=== PATIENT | female | born 1955 | race African-American/Black ===

== ENCOUNTER 2025-09-23 14:07 | Inpatient (IN) | payer MEDICARE, OTHER ==
[~2025-09-23] VITALS: Ht 157.5 cm; Wt 79.2 kg
[2025-09-23] MEDS: HYDROcodone-ACET 5/325MG TAB PO ONE (00:21)
[2025-09-23] MEDS: ATORVASTATIN 20 MG TAB PO SCH (00:26)
[2025-09-23] MEDS: ENOXAPARIN SOD 40 MG/0.4 ML SYRINGE SC SCH (00:26)
[2025-09-23] MEDS: LORATADINE 10 MG TAB PO ONE (00:27)
--- NOTE | 2025-09-23 14:36 | ED.PDOC ---
History of Present Illness HPI Comments A 70 YEAR OLD FEMALE PRESENTS TO THE ED WITH COMPLAINT OF NECK PAIN, HEADACHE, AND HIGH BLOOD PRESSURE. PATIENT STATES SHE HAS BEEN EXPERIENCING NECK PAIN OFF AND ON FOR THE PAST 3 WEEKS. PATIENT NOTES SHE BEGAN TO EXPERIENCE A HEADACHE, DIZZINESS, AND HIGH BLOOD PRESSURE YESTERDAY AND HAS BEEN UNABLE TO CONTROL HER BLOOD PRESSURE DESPITE TAKING HER HCTZ 50 MG. PATIENT NOTES THAT SHE HAS ALSO BEEN EXPERIENCING URINARY FREQUENCY AND URINARY URGENCY. PATIENT DENIES VISION CHANGES, SLURRED SPEECH, ONE-SIDED WEAKNESS, FACIAL DROOP, FEVER, CHILLS, SHORTNESS OF BREATH, CHEST PAIN, ABDOMINAL PAIN, NAUSEA, VOMITING, OR OTHER COMPLAINTS. NO OTHER SYMPTOMS OR MODIFYING FACTORS AT THIS TIME. PATIENT IS ALERT, ORIENTED X 4, AND HAS STEADY GAIT. 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 ENGINEER History Family History Family History: Reviewed,noncontributory to illness Social History Smoker: Non-Smoker Alcohol: Denies ETOH Use Drugs: Denies Drug Use Lives In: Home Constitutional: denies: chills, diaphoresis, fatigue, fever, malaise, sweats, weakness, others EENTM: denies: blurred vision, double vision, ear bleeding, ear discharge, ear drainage, ear pain, ear ringing, eye pain, eye redness, hearing loss, mouth pain, mouth swelling, nasal discharge, nose bleeding, nose congestion, nose pain, photophobia, tearing, throat pain, throat swelling, voice changes, others Respiratory: denies: cough, hemoptysis, orthopnea, SOB at rest, shortness of breath, SOB with excertion, stridor, wheezing, others Cardiovascular: reports: others (HYPERTENSION); denies: chest pain, dizzy spells, diaphoresis, Dyspnea on exertion, edema, irregular heart beat, left arm pain, lightheadedness, palpitations, PND, syncope Gastrointestinal: denies: abdomen distended, abdominal pain, blood streaked bowels, constipated, diarrhea, dysphagia, difficulty swallowing, hematemesis, melena, nausea, poor appetite, poor fluid intake, rectal bleeding, rectal pain, vomiting, others Genitourinary: denies: abnormal vagina bleeding, burning, dyspareunia, dysuria, flank pain, frequency, hematuria, incontinence, pain, , vagina discharge, urgency, others Neurological: reports: dizziness, headache; denies: fainting, left sided numbness, left sided weakness, numbness, paresthesia, pre-existing deficit, right sided numbness, right sided weakness, seizure, speech problems, tingling, tremors, weakness, others Musculoskeletal: reports: muscle pain, neck pain; denies: back pain, gout, joint pain, joint swelling, muscle stiffness, others Integumetry: denies: bruises, change in color, change in hair/nails, dryness, laceration, lesions, lumps, rash, wounds, others Allergic/Immunocompromised: denies: Difficulty Healing, Frequent Infections, Hives, Itching, others Hematologic/Lymphatic: denies: anemia, blood clots, easy bleeding, easy bruising, swollen glands, others Endocrine: denies: excessive hunger, excessive sweating, excessive thirst, excessive urination, flushing, intolerance to cold, intolerance to heat, unexpla ined weight gain, unexplained weight loss, others Psychiatric: denies: anxiety, bipolar disorder, depression, hopeless, panic disorder, schizophrenia, sleepless, suicidal, others All Other Systems: Reviewed and Negative Physical Exam General Appearance: No Apparent Distress, Normal HEENT: Normal ENT Inspection, PERRL/EOMI, Pharynx Normal, TMs Normal Neck: Full Range of Motion, Normal Inspection, Supple, Tender Lateral (TENDERNESS AND MUSCLE SPASM ON POSTERIOR NECK, NO BONY TENDERNESS, SWELLING AND DEFORMITY. ) Respiratory: Chest Non-Tender, Lungs Clear, No Accessory Muscle Use, No Respiratory Distress, Normal Breath Sounds Cardiovascular: No Edema, No JVD, No Murmur, No Gallop, Normal Peripheral Pulses, Regular Rate/Rhythm Breast Exam: Deferred Gastrointestinal: No Organomegaly, Non Tender, No Pulsatile Mass, Normal Bowel Sounds, Soft Genitalia: Deferred Pelvic: Deferred Rectal: Deferred Extremities: No calf tenderness, Normal capillary refill, Normal inspection, Normal range of motion, Non-tender, No pedal edema Musculoskeletal : Apperance: Normal Neurologic: Alert, front office representative II-XII nml as Tested, No Motor Deficits, Normal Affect, Normal Mood, No Sensory Deficits Cerebellar Function: Normal Reflexes: Normal Skin: Dry, Normal Color, Warm Peripheral Pulses: 2+ carotid (R), 2+ carotid (L), 2+ dorsalis pedis (R), 2+ dorsalis pedis (L) Lymphatic: No Adenopathy Was a procedure done? Was a procedure done?: No Differential Dx Considerations may include: UNCONTROLLED HYPERTENSION, HYPERTENSIVE URGENCY, HYPERTENSIVE EMERGENCY, DEHYDRATION, ELECTROLYTE IMBALANCE, UTI, ACUTE SINUSITIS, BRAIN BLEED, BRAIN MASS, CVA, DDD, CERVICAL RADICULOPATHY, TENSION HEADACHE, MIGRAINE HEADACHE X-Ray, Labs, Meds, VS Vital Signs Date Time Temp Pulse Resp B/P (MAP) Pulse Ox O2 Delivery O2 Flow Rate FiO2 09/23/25 16:24 107/59 09/23/25 15:12 232/94 09/23/25 14:12 97.6 70 18 217/112 97 97.6 Lab Test 09/23/25 14:52 09/23/25 14:26 Range/Units White Blood Count 6.2 4.4-10.8 10^3/uL Red Blood Count 5.12 4.0-5.20 10^6/uL Hemoglobin 14.8 12.2-16.2 g/dL Hematocrit 45.1 36.0-46.0 % Mean Corpuscular Volume 88.1 80.0-100.0 fL Mean Corpuscular Hemoglobin 28.9 28.0-32.0 pg Mean Corpuscular Hemoglobin Concent 32.8 32.0-36.0 g/dL Red Cell Distribution Width 13.6 11.8-14.3 % Platelet Count 315 140-450 10^3/uL Mean Platelet Volume 7.0 6.9-10.8 fL Neutrophils (%) (Auto) 48.7 37.0-80.0 % Lymphocytes (%) (Auto) 36.3 10.0-50.0 % Monocytes (%) (Auto) 9.5 0.0-12.0 % Eosinophils (%) (Auto) 5.1 0.0-7.0 % Basophils (%) (Auto) 0.4 0.0-2.0 % Neutrophils # (Auto) 3.0 1.6-8.6 10 ^3/uL Lymphocytes # (Auto) 2.3 0.4-5.4 10 ^3/uL Monocytes # (Auto) 0.6 0-1.3 10 ^3/uL Eosinophils # (Auto) 0.3 0-0.8 10 ^3/uL Basophils # (Auto) 0 0-0.2 10 ^3/uL Nucleated Red Blood Cells 0.1 % Sodium Level 142 136-145 mmol/L Potassium Level 3.6 3.5-5.1 mmol/L Chloride Level 103 98-107 mmol/L Carbon Dioxide Level 28 20-31 mmol/L Anion Gap 11 5-15 Blood Urea Nitrogen 8 L 9-23 mg/dL Creatinine 0.98 0.550-1.02 mg/dL Glomerular Filtration Rate Calc 62 >90 mL/min BUN/Creatinine Ratio 8.2 L 10.0-20.0 Serum Glucose 81 74-106 mg/dL Calcium Level 9.9 8.7-10.4 mg/dL Troponin I High Sensitivity 26 </=34 ng/L Thyroid Stimulating Hormone (TSH) 3.01 0.55-4.78 uIU/mL Urine Color Colorless Yellow Urine Clarity Clear Clear Urine pH 7.0 5.0-9.0 Urine Specific [place] 1.006 1.001-1.035 Urine Protein Negative Negative Urine Ketones Negative Negative Urine Blood Negative Negative /uL Urine Nitrite Negative Negative Urine Bilirubin Negative Negative Urine Urobilinogen Normal Negative mg/dL Urine Leukocyte Esterase Negative Negative /uL Urine RBC None seen 0 - 4 /hpf Urine Microscopic WBC < 1 0-5 /HPF Urine Squamous Epithelial Cells Few <5 /hpf Urine Bacteria None seen None Seen /hpf Urine Glucose Normal Normal mg/dL Current Medications Medications (Trade) Dose Ordered Sig/Niecy Route Start Time Stop Time Status Last Admin Clonidine HCl (Catapres Tablet) 0.2 mg ONCE ONCE PO 09/23/25 14:30 09/23/25 14:31 DC 09/23/25 15:12 CLINICAL HISTORY: HEADACHE WITH ELEVATED BLOOD PRESSURE TECHNIQUE: Helical scanning was performed of the head from the skull base to the vertex. Multiplanar reconstructions were performed. This exam was performed according to our departmental dose optimization program. Up-to-date CT equipment and radiation dose reduction techniques are utilized as appropriate. CTDI 54 DLP 968 COMPARISON: None FINDINGS: There is no evidence for acute intracranial hemorrhage, acute ischemic changes, mass, mass effect, or extra-axial fluid collection. There is no hydrocephalus or midline shift. There is no effacement of the cerebral sulci and basal subarachnoid cisterns. The henning-white matter differentiation is well maintained. The imaged paranasal sinuses are clear. IMPRESSION: NO ACUTE INTRACRANIAL ABNORMALITY SEEN. ATED BY: ELLIE VALADEZ MD DICTATED DATE/TIME: 09/23/251505 SIGNED BY: ELLIE VALDAEZ MD SIGNED DATE/TIME: 09/23/251505 CC: CHEST RADIOGRAPH Indication: HTN Technique: Single frontal view of the chest was obtained Comparison: None FINDINGS: Lines and Tubes: None Lungs: No focal consolidation. Pleura: No effusion. No pneumothorax. Cardiomediastinal contours: Unremarkable Bones: No acute osseous abnormality. IMPRESSION: 1. No acute cardiopulmonary disease. ATED BY: XENIA MENA Jr., DO DICTATED DATE/TIME: 09/23/251518 SIGNED BY: XENIA MENA Jr., DO SIGNED DATE/TIME: 09/23/251518 CC: CLINICAL INDICATION: NECK PAIN TO SHOULDER TECHNIQUE: 3 radiographic views of the cervical spine were obtained. Comparison: None FINDINGS/IMPRESSION: Bony spondylosis and degenerative disc changes are noted from C3 through C6. There is a small calcification off the tip of the spinous process of C7. May represent avulsion fracture off of the tip of the spinous process of C7 or may represent a calcification in the nuchal ligament. This is an avulsion fracture off the spinous process of C7 this is considered a michele-rib builder's fracture and is stable. Calcification in the nuchal ligament there is no indication of affecting cervical stability. There is no prevertebral soft tissue swelling ATED BY: XENIA MENA Jr., DO DICTATED DATE/TIME: 09/23/251516 SIGNED BY: XENIA MENA Jr., DO SIGNED DATE/TIME: 09/23/251516 CC: X-Ray, Labs, Meds, VS Comment EXTERNAL MEDICAL RECORDS REVIEWED: [NONE] INDEPENDENT HISTORIANS: [NONE] SOCIAL DETERMINANTS OF HEALTH: [NONE] LABS ORDERED: CBC, BMP, UA, TROPONIN REVIEWED AND INTERPRETED RESULTS: NORMAL IMAGING ORDERED: XR CHEST, CT BRAIN TREATMENTS ORDERED: CLONIDINE 0.2 MG P.O. NS 500ML BOLUS PROCEDURES PERFORMED: NONE CRITICAL CARE TIME: NONE I HAVE DISCUSSED THE PATIENT WITH THE ATTENDING PHYSICIAN DR. ROMERO AND HE AGREES WITH THE PATIENT'S PLAN OF CARE UPON MY PHYSICAL EXAMINATION, THE PATIENT WAS WELL IN APPEARANCE, AND HAD NO SIGNS OF RESPIRATORY DISTRESS AT THIS TIME. DUE TO THE PATIENT'S BLOOD PRESSURE REMAINING ELEVATED DESPITE TREATMENT AND DESPITE HER TAKING HER ROUTINE BLOOD PRESSURE MEDICATION, I HAVE DETERMINED THAT THE PATIENT NEEDS TO BE ADMITTED FOR FURTHER TREATMENT AND EVALUATION. THE ON-CALL HOSPITALIST WILL BE CONTACTED FOR ADMISSION OF THIS PATIENT. Images Reviewed?: Images reviewed and evaluated by me Time of 1ST Reevaluation: 17:20 Reevaluation 1ST: Unchanged Patient Education/Counseling: Diagnosis, Treatment Family Education/Counseling: Diagnosis, Treatment SEPSIS Sepsis Screen Date sepsis recognized/suspect: Sep 23, 2025 Time Sepsis recognized/suspect: 1414 Recent Procedure: No On Antibiotic Therapy: No Respiratory Rate >20: No Heart Rate >90: No Temp<36 C (96.8 F) or >38.3 C: No SBP <90 or MAP <65 mmHG: No New Acute Mental Status Change: No Is the patient on CPAP, BIPAP,: No Physician Orders Head Without Contrast (09/23/25 14:25) Chest Xray 1 View (09/23/25 14:25) Cervical Spine 3v (09/23/25 14:25) Electrocardigram (09/23/25 14:25) Heplock Iv (09/23/25 ) Sodium Chloride 0.9% (09/23/25 16:30) Sodium Chloride 0.9% (09/23/25 16:30) Vital Signs Date Time Temp Pulse Resp B/P (MAP) Pulse Ox O2 Delivery O2 Flow Rate FiO2 09/23/25 16:24 107/59 09/23/25 15:12 232/94 09/23/25 14:12 97.6 70 18 217/112 97 97.6 Laboratory Tests Test 09/23/25 14:52 White Blood Count 6.2 10^3/uL (4.4-10.8) Medications Medications Dose Ordered Sig/Niecy Route Start Time Stop Time Status Last Admin Dose Admin Clonidine HCl 0.2 mg ONCE ONCE PO 09/23/25 14:30 09/23/25 14:31 DC 09/23/25 15:12 Departure 1 Departure Time of Disposition: 17:21 Impression: Primary Impression: Accelerated hypertension Additional Impressions: Acute headache Qualified Codes: R51.9 - Headache, unspecified DDD (degenerative disc disease), cervical Disposition: ADMITTED INPATIENT Condition: Serious Critical Care Note Critical Care Time?: No Stability Stability form required: Yes Unstable for transfer: Requires medication, ED Physician Assesment, Possible rapid decline I personally scribed for JOCELINE ALFONSO ([email or web address]) on 09/23/25 at 14:36. Electronically submitted by Igor Peck ([email or web address]). I personally scribed for JOCELINE ALFONSO ([email or web address]) on 09/23/25 at 16:21. Electronically submitted by Igor Peck ([email or web address]). JOCELINE ALFONSO Sep 23, 2025 14:36
--- NOTE | 2025-09-23 15:08 | DVH ---
CLINICAL HISTORY: HEADACHE WITH ELEVATED BLOOD PRESSURE TECHNIQUE: Helical scanning was performed of the head from the skull base to the vertex. Multiplanar reconstructions were performed. This exam was performed according to our departmental dose optimizat ion program. Up-to-date CT equipment and radiation dose reduction techniques are utilized as appropri ate. CTDI 54 DLP 968 COMPARISON: None FINDINGS: There is no evidence for acute intracranial hemorrhage, acute ischemic changes, mass, mass effect, or extra-axial fluid collection. There is no hydrocephalus or midline shift. There is no effacement of the cerebral sulci and basal subarachnoid cisterns. The henning-white matter differentiation is well stewart ntained. The imaged paranasal sinuses are clear. IMPRESSION: NO ACUTE INTRACRANIAL ABNORMALITY SEEN.
--- NOTE | 2025-09-23 15:20 | DVH ---
CLINICAL INDICATION: NECK PAIN TO SHOULDER TECHNIQUE: 3 radiographic views of the cervical spine were obtained. Comparison: None FINDINGS/IMPRESSION: Bony spondylosis and degenerative disc changes are noted from C3 through C6. There is a small calcification off the tip of the spinous process of C7. May represent avulsion fract ure off of the tip of the spinous process of C7 or may represent a calcification in the nuchal ligame nt. This is an avulsion fracture off the spinous process of C7 this is considered a michele-engraver automatic's fract ure and is stable. Calcification in the nuchal ligament there is no indication of affecting cervical stability. There is no prevertebral soft tissue swelling
--- NOTE | 2025-09-23 15:21 | DVH ---
CHEST RADIOGRAPH Indication: HTN Technique: Single frontal view of the chest was obtained Comparison: None FINDINGS: Lines and Tubes: None Lungs: No focal consolidation. Pleura: No effusion. No pneumothorax. Cardiomediastinal contours: Unremarkable Bones: No acute osseous abnormality. IMPRESSION: 1. No acute cardiopulmonary disease.
[2025-09-23 15:23] LABS: Hematocrit 45.1 % (36.0-46.0); Hemoglobin 14.8 g/dL (12.2-16.2); Mean Corpuscular Hemoglobin 28.9 pg (28.0-32.0); Mean Corpuscular Volume 88.1 fL (80.0-100.0); Nucleated Red Blood Cells % 0.1 %
[2025-09-23 15:25] LABS: Chloride 103 mmol/L (98-107); Potassium 3.6 mmol/L (3.5-5.1); Sodium 142 mmol/L (136-145)
[2025-09-23 15:26] LABS: Anion Gap 11 (5-15); Calcium 9.9 mg/dL (8.7-10.4); Carbon Dioxide 28 mmol/L (20-31)
[2025-09-23 15:31] LABS: BUN/Creatinine Ratio 8.2 (10.0-20.0); Glucose 81 mg/dL (74-106)
[2025-09-23 15:32] LABS: Blood Urea Nitrogen 8 mg/dL (9-23)
[2025-09-23 15:56] LABS: Urine Protein, UAD Negative (Negative)
[2025-09-23] MEDS ORDERED: SODIUM CHLORIDE 0.9% 1,000 ML IV ONE (16:30)
[2025-09-23] MEDS: SODIUM CHLORIDE 0.9% 500 ML IV ONE (17:31)
[2025-09-23] MEDS ORDERED: LIDOCAINE 5% TOPICAL PATCH TOP ONE (21:30)
[2025-09-23] MEDS ORDERED: ONDANSETRON HCL 4 MG/2 ML VIAL IV PRN (21:30)
[2025-09-23] MEDS ORDERED: ACETAMINOPHEN 325 MG TAB PO PRN (21:30)
--- NOTE | 2025-09-23 22:06 | DVHHPRES ---
History of Present Illness Resident Creating Document: JAQUI SOLIMAN RESIDENT History of Present Illness This is a 70-year-old female With a past medical history of hypertension and single kidney since ( right kidney present) who came to the emergency department with complaints of neck pain, pain between her shoulder blades, right-sided face pain and headache for the past 1 day. Patient reports that she checked her blood pressure which was high about 154/80 mmHg which prompted her to visit the emergency room as the pain in her face, head, neck, shoulder blades was increasing. Patient describes the pain as a dull ache, rates it as 9/ 10 in intensity, localized to the aforementioned we regions, increased with head movement and associated with ear fullness and ache as well as mucus in her throat since yesterday which she is unable to cough out. On inquiry patient reports that 4 days ago she felt dizzy in the afternoon when she was walking and had to sit down. She felt that she was rotating and after 10 minutes it went away. Patient had checked her blood pressure in the morning that day which was normal. patient denies any dizziness at the moment, no nausea, vomiting, chest pain, blurring of vision, numbness,confusion, or any flu-like symptoms. Patient also reports that she had increased urinary frequency yesterday which was new to her but denies any dysuria, burning micturition or any other urinary symptoms. She does report she has shortness of breath sometimes when she walks up the stairs which is recent finding but was not short of breath yesterday or today. On admission patient had hypertensive urgency with blood pressure of 217/112 mmHg. We are admitting her for further workup and management. Past medical history: As stated above Past surgical history: Cholecystectomy, tubal ligation family history: Mother passed due to colon cancer, father passed due to lung cancer Social history: Patient denies smoking, did take marijuana as a teenager, drinks wine socially PCP: in [facility] that she can not remember the name of ; Dr. Luci vyas is her radiologic electronic specialist for her single kidney Allergies: seasonal, no known medical allergy code status: Full code Review of Systems Constitutional: Yes: Other (headache on right temporal region and right side of the face); No: Fever, Chills, Sweats, Weakness, Malaise Eyes: No: Pain, Vision change, Conjunctivae inflammation, Eyelid inflammation, Other, Redness ENT: Ear pain, Throat swelling; No: Ear discharge, Nose pain, Nose discharge, Nose congestion, Mouth pain, Mouth swelling, Throat pain, Other Respiratory: No: Cough, Dry, Shortness of breath, SOB with excertion, Wheezing, Hemoptysis, Pleuritic Pain, Sputum, Wheezing, Other Cardiovascular: No: Chest Pain, Palpitations, Orthopnea, Paroxysmal Noc. Dyspnea, Edema, Lt Headedness, Other Gastrointestinal: No: Nausea, Vomiting, Abdominal Pain, Diarrhea, Constipation, Melena, Hematochezia, Other Genitourinary: No Dysuria, No Frequency, No Incontinence, No Hematuria, No Retention, No Other Musculoskeletal: neck pain, shoulder pain; No: other, arm pain, back pain, hand pain, leg pain, foot pain Skin: No: Rash, Lesions, Jaundice, Bruising, Other Neurological: No: Weakness, Numbness, Incoordination, Change in speech, Confusion, Seizures, Other Allergies: Coded Allergies: NO KNOWN ALLERGIES (Unverified , 03/22/14) Medications Current Medications Medications Dose Ordered Sig/Niecy Route Start Time Stop Time Status Last Admin Dose Admin Acetaminophen/ Hydrocodone Bitart 1 tab Q4HP PRN PO 09/23/25 21:30 UNV Ondansetron HCl 4 mg Q4HP PRN IV 09/23/25 21:30 UNV Enoxaparin Sodium 40 mg DAILY SC 09/23/25 21:30 UNV Acetaminophen 650 mg Q4HP PRN PO 09/23/25 21:30 UNV Hydrochlorothiazide 50 mg DAILY PO 09/24/25 10:00 UNV Atorvastatin Calcium 20 mg HS PO 09/23/25 22:00 UNV Losartan Potassium 25 mg DAILY PO 09/24/25 10:00 UNV Loratadine 10 mg DAILY PO 09/24/25 10:00 UNV Lidocaine 1 patch DAILY TOP 09/24/25 10:00 UNV Exam Vital Signs Vital Signs Date Time Temp Pulse Resp B/P (MAP) Pulse Ox O2 Delivery O2 Flow Rate FiO2 09/23/25 19:45 97.6 63 16 130/79 (96) 95 97.6 Exam General Appearance: Alert, Oriented X3, Cooperative, Not in acute distress HEENT: Atraumatic, Mucous membranes moist/pink, tenderness on palpation of the back of the neck and between the shoulder blades Respiratory: Clear to auscultation, Normal air movement, No added sounds Cardiovascular: Regular rate, Normal S1, Normal S2, No murmurs Abdominal: Active bowel sounds, Soft, no distention, no tenderness Extremities: No edema, Normal pulses, No tenderness/swelling Skin: No Significant rash, except past surgical scars Neuro: Normal speech, sensorimotor deficits none Psych/Mental Status: Mental status NL, Mood NL Nurse was there as affiliate marketing specialist during examination Labs/Xrays Labs Test 09/23/25 14:52 09/23/25 14:26 Range/Units White Blood Count 6.2 4.4-10.8 10^3/uL Red Blood Count 5.12 4.0-5.20 10^6/uL Hemoglobin 14.8 12.2-16.2 g/dL Hematocrit 45.1 36.0-46.0 % Mean Corpuscular Volume 88.1 80.0-100.0 fL Mean Corpuscular Hemoglobin 28.9 28.0-32.0 pg Mean Corpuscular Hemoglobin Concent 32.8 32.0-36.0 g/dL Red Cell Distribution Width 13.6 11.8-14.3 % Platelet Count 315 140-450 10^3/uL Mean Platelet Volume 7.0 6.9-10.8 fL Neutrophils (%) (Auto) 48.7 37.0-80.0 % Lymphocytes (%) (Auto) 36.3 10.0-50.0 % Monocytes (%) (Auto) 9.5 0.0-12.0 % Eosinophils (%) (Auto) 5.1 0.0-7.0 % Basophils (%) (Auto) 0.4 0.0-2.0 % Neutrophils # (Auto) 3.0 1.6-8.6 10 ^3/uL Lymphocytes # (Auto) 2.3 0.4-5.4 10 ^3/uL Monocytes # (Auto) 0.6 0-1.3 10 ^3/uL Eosinophils # (Auto) 0.3 0-0.8 10 ^3/uL Basophils # (Auto) 0 0-0.2 10 ^3/uL Nucleated Red Blood Cells 0.1 % Sodium Level 142 136-145 mmol/L Potassium Level 3.6 3.5-5.1 mmol/L Chloride Level 103 98-107 mmol/L Carbon Dioxide Level 28 20-31 mmol/L Anion Gap 11 5-15 Blood Urea Nitrogen 8 L 9-23 mg/dL Creatinine 0.98 0.550-1.02 mg/dL Glomerular Filtration Rate Calc 62 >90 mL/min BUN/Creatinine Ratio 8.2 L 10.0-20.0 Serum Glucose 81 74-106 mg/dL Calcium Level 9.9 8.7-10.4 mg/dL Troponin I High Sensitivity 26 </=34 ng/L Thyroid Stimulating Hormone (TSH) 3.01 0.55-4.78 uIU/mL Urine Color Colorless Yellow Urine Clarity Clear Clear Urine pH 7.0 5.0-9.0 Urine Specific [place] 1.006 1.001-1.035 Urine Protein Negative Negative Urine Ketones Negative Negative Urine Blood Negative Negative /uL Urine Nitrite Negative Negative Urine Bilirubin Negative Negative Urine Urobilinogen Normal Negative mg/dL Urine Leukocyte Esterase Negative Negative /uL Urine RBC None seen 0 - 4 /hpf Urine Microscopic WBC < 1 0-5 /HPF Urine Squamous Epithelial Cells Few <5 /hpf Urine Bacteria None seen None Seen /hpf Urine Glucose Normal Normal mg/dL SEPSIS Sepsis Screen Date sepsis recognized/suspect: Sep 23, 2025 Time Sepsis recognized/suspect: 1414 Recent Procedure: No On Antibiotic Therapy: No Respiratory Rate >20: No Heart Rate >90: No Temp<36 C (96.8 F) or >38.3 C: No SBP <90 or MAP <65 mmHG: No New Acute Mental Status Change: No Is the patient on CPAP, BIPAP,: No Physician Orders Head Without Contrast (09/23/25 14:25) Chest Xray 1 View (09/23/25 14:25) Cervical Spine 3v (09/23/25 14:25) Electrocardigram (09/23/25 14:25) Heplock Iv (09/23/25 ) Admit (09/23/25 21:25) Code Status (09/23/25 21:25) Hydrocodone-Acet 5/325mg Tab ([place] 5/32 (09/23/25 21:30) Ondansetron Hcl (Zofran) (09/23/25 21:30) Complete Blood Count (09/24/25 04:00) Comprehensive Metabolic Panel (09/24/25 04:00) Cardiac Diet-2gna,Lofat,Lochol (09/24/25 Breakfast) Condition: Unstable (09/23/25 21:25) Enoxaparin Sodium (Lovenox) (09/23/25 21:30) Notify Of Changes From Base (09/23/25 21:25) Baclofen Tablet (Liorisal Tablet) (09/23/25 21:30) Acetaminophen Tablet (Tylenol Tablet) (09/23/25 21:30) Hydrochlorothiazide Tablet (Hydrochlorot (09/24/25 10:00) Hepatic Panel (09/23/25 21:25) Atorvastatin (Lipitor) (09/23/25 22:00) Drug Screen (09/23/25 21:25) Losartan Tablet (Cozaar Tablet) (09/24/25 10:00) Echo 2d Mode Cardiac Dop (09/23/25:25) Loratadine Tablet (Claritin Tablet) (09/24/25 10:00) Loratadine Tablet (Claritin Tablet) (09/23/25 21:30) Lidocaine 5% Topical Patch (Lidoderm 5% (09/23/25 21:30) Lidocaine 5% Topical Patch (Lidoderm 5% (09/24/25 10:00) Hydrocodone-Acet 5/325mg Tab ([place] 5/32 (09/23/25 21:30) Vital Signs Date Time Temp Pulse Resp B/P (MAP) Pulse Ox O2 Delivery O2 Flow Rate FiO2 09/23/25 19:45 97.6 63 16 130/79 (96) 95 97.6 09/23/25 16:24 107/59 09/23/25 15:12 232/94 09/23/25 14:12 97.6 70 18 217/112 97 97.6 Laboratory Tests Test 09/23/25 14:52 White Blood Count 6.2 10^3/uL (4.4-10.8) Medications Medications Dose Ordered Sig/Niecy Route Start Time Stop Time Status Last Admin Dose Admin Clonidine HCl 0.2 mg ONCE ONCE PO 09/23/25 14:30 09/23/25 14:31 DC 09/23/25 15:12 0.2 MG Sodium Chloride 500 ml @ 500 mls/hr Q1H ONCE IV 09/23/25 16:30 09/23/25 17:29 DC 09/23/25 17:31 500 MLS/HR Assessment/Plan Assessment/Plan #Hypertensive Urgency -CXR-No acute cardiopulmonary disease. -CT -head without contrast shows no acute intracranial abnormality -clonidine 0.1 mg given once -continue home medication hydrochlorothiazide 50 mg po daily -amlodipine 5 mg p.o. daily -UDS negative -echo -baclofen 10 mg p.o. once -lidocaine 5% patch -Zofran 4 mg IV q.4 PRN -pain control with acetaminophen 650 mg q.4 PRN for headache -[place] 5/325 mg q.4 PRN for neck pain #bony spondylolysis and degenerative disc disease #avulsion fracture of tip of spinous process C7 -CT cervical spine shows: Bony spondylosis and degenerative disc changes are noted from C3 through C6; There is a small calcification off the tip of the spinous process of C7. 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 Neri, patient and nurse. Plan discussed with: Patient My Orders Orders - JAQUI SOLIMAN RESIDENT Procedure Category Date Status Time Admit ADMIT 09/23/25 Transmitted 21:25 Code Status CODE 09/23/25 Transmitted 21:25 Hydrocodone-Acet PHA 09/23/25 Logged 5/325mg Tab ([place] 21:30 Ondansetron Hcl PHA 09/23/25 Logged (Zofran) 21:30 Complete Blood Count LAB 09/24/25 Verified 04:00 Comprehensive LAB 09/24/25 Verified Metabolic Panel 04:00 Cardiac DIET 09/24/25 Transmitted Diet-2gna,Lofat,Lochol Breakfast Condition: Unstable EDWIN 09/23/25 In Process 21:25 Enoxaparin Sodium PHA 09/23/25 Logged (Lovenox) 21:30 Notify Of Changes EDWIN 09/23/25 In Process From Base 21:25 Baclofen Tablet PHA 09/23/25 Logged (Liorisal Tablet) 21:30 Acetaminophen Tablet PHA 09/23/25 Logged (Tylenol Tablet) 21:30 Hydrochlorothiazide PHA 09/24/25 Logged Tablet (Hydrochlorot 10:00 Hepatic Panel LAB 09/23/25 In Process 21:25 Atorvastatin (Lipitor) PHA 09/23/25 Logged 22:00 Drug Screen LAB 09/23/25 Logged 21:25 Losartan Tablet PHA 09/24/25 Logged (Cozaar Tablet) 10:00 Echo 2d Mode Cardiac US 09/23/25 Logged DOP 21:25 Loratadine Tablet PHA 09/24/25 Logged (Claritin Tablet) 10:00 Loratadine Tablet PHA 09/23/25 Logged (Claritin Tablet) 21:30 Lidocaine 5% Topical PHA 09/23/25 Logged Patch (Lidoderm 5% 21:30 Lidocaine 5% Topical PHA 09/24/25 Logged Patch (Lidoderm 5% 10:00 Hydrocodone-Acet PHA 09/23/25 Logged 5/325mg Tab ([place] 21:30 Date of Service: Sep 23, 2025 Billing Provider: NICK NERI MD, SRE RESIDENT Sep 23, 2025 22:06
[2025-09-23 22:15] LABS: Alanine Aminotransferase 29.0 U/L (7-40); Total Protein 8.0 g/dL (5.7-8.2)
[2025-09-23 22:16] LABS: Albumin 4.6 g/dL (3.2-4.8); Bilirubin, Direct 0.2 mg/dL (<0.3); Bilirubin, Total 0.8 mg/dL (0.2-1.0)
[2025-09-23 22:18] LABS: Alkaline Phosphatase 119.0 U/L (46-116)
[2025-09-23 22:48] LABS: Triglycerides 107 mg/dL (< 150)
[2025-09-23 22:50] LABS: HDL Cholesterol 57 mg/dL (40-59)
[2025-09-23 22:51] LABS: Cholesterol 272 mg/dL (< 200)
[2025-09-23 23:41] LABS: Amphetamine Screen, Urine Neg (NEGATIVE); Barbiturate Scree,Urine Neg (NEGATIVE); Benzodiazephine Screen, Urine Neg (NEGATIVE); Cannabinoid Screen, Urine Neg (NEGATIVE); Cocaine Screen, Urine Neg (NEGATIVE); Opiate Scree,Urine Neg (NEGATIVE); Phencyclidine Screen, Urine Neg (NEGATIVE)
[2025-09-24] VITALS (11 sets, daily range): BP systolic 122–179; BP diastolic 55–90; PULSE 56–66; RESP 15–19; TEMP 97.4–97.9; O2SAT 96–100
[2025-09-24] MEDS: BACLOFEN 10 MG TAB PO ONE (00:19)
[2025-09-24] MEDS: ATORVASTATIN 20 MG TAB PO SCH (03:30)
[2025-09-24 08:50] LABS: Hematocrit 42.4 % (36.0-46.0); Hemoglobin 14.2 g/dL (12.2-16.2); Mean Corpuscular Hemoglobin 29.4 pg (28.0-32.0); Mean Corpuscular Volume 87.7 fL (80.0-100.0); Nucleated Red Blood Cells % 0.1 %
[2025-09-24 09:03] LABS: Triglycerides 90 mg/dL (< 150)
[2025-09-24 09:05] LABS: HDL Cholesterol 50 mg/dL (40-59)
[2025-09-24 09:07] LABS: Cholesterol 248 mg/dL (< 200)
[2025-09-24 09:08] LABS: Alanine Aminotransferase 25 U/L (7-40); Albumin 4.2 g/dL (3.2-4.8); Anion Gap 9 (5-15); BUN/Creatinine Ratio 11.3 (10.0-20.0); Blood Urea Nitrogen 11 mg/dL (9-23); Calcium 9.3 mg/dL (8.7-10.4); Carbon Dioxide 28 mmol/L (20-31); Chloride 106 mmol/L (98-107); Glucose 93 mg/dL (74-106); Potassium 3.7 mmol/L (3.5-5.1); Sodium 143 mmol/L (136-145); Total Protein 7.3 g/dL (5.7-8.2)
[2025-09-24 09:09] LABS: Alkaline Phosphatase 116 U/L (46-116); Bilirubin, Total 0.7 mg/dL (0.2-1.0)
[2025-09-24] MEDS ORDERED: LOSARTAN POTASSIUM 25 MG TAB PO SCH (10:00)
[2025-09-24] MEDS: hydroCHLOROthiazide 25 MG TAB PO SCH (13:47)
[2025-09-24] MEDS: LORATADINE 10 MG TAB PO SCH (13:47)
--- NOTE | 2025-09-24 14:19 | DVHPNRES ---
Progress Note Date Seen: Sep 24, 2025 Resident Creating Document: PATEL BERG RESIDENT Has the PT tested + for MRSA If YES, has PT been informed?: No Medical Necessity Reason Pt with a Central, PICC or Fol: No Subjective Review of Systems Mohsen Romero is a 70-year-old female, with a past medical history of hypertension and single functioning kidney (diagnosed in adulthood, right kidney is present). The patient came to the ED with chief complain of 1 day of headache, localized in the right temporal area, 9/10, throbbing like pain, irradiated to right side of the face, ear and neck; associated with dizziness, sore throat, and post nasal drip. The patient reports noticing high blood pressure readings at home. This prompted her visit to the ED. The patient denies fever, chills, nausea, vomit, diarrhea, chest pain, abdominal pain, sick contacts or recent travels. In the ED the BP 217/112 mmHg; the patient was given clonidine 0.2mg. CT scan report showed: Degenerative disc disease C3 through C6. The patient was admitted for further assessment, BP management and pain control. On 09/24/25, the patient was re-evaluated at bedside, VS, labs and chart was reviewed. Labs are wnl, BP: 153/79. The patient reports feeling better, but still has sore throat. COVID-19 and influenza test were ordered. Hydrochlorothiazide 50mg and amlodipine 10mg was started. We will continue following this patient progress. Past medical history: HTN, single functioning kidney (diagnosed in adulthood) Past surgical history: Cholecystectomy, tubal ligation family history: Mother passed due to colon cancer, father passed due to lung cancer Social history: Patient denies smoking, did take marijuana as a teenager, drinks wine socially PCP: in [facility] that she can not remember the name of ; Dr. Luci vyas is her coin machine mechanic for her single kidney Allergies: seasonal, no known medical allergy code status: Full code ROS: Constitutional: Yes: Other (headache on right temporal region and right side of the face); No: Fever, Chills, Sweats, Weakness, Malaise Eyes: No: Pain, Vision change, Conjunctivae inflammation, Eyelid inflammation, Other, Redness ENT: Ear pain, Throat pain and swelling; No: Ear discharge, Nose pain, Nose discharge, Nose congestion, Mouth pain, Mouth swelling, Throat pain, Other Respiratory: No: Cough, Dry, Shortness of breath, SOB with excertion, Wheezing, Hemoptysis, Pleuritic Pain, Sputum, Wheezing, Other Cardiovascular: No: Chest Pain, Palpitations, Orthopnea, Paroxysmal Noc. Dyspnea, Edema, Lt Headedness, Other Gastrointestinal: No: Nausea, Vomiting, Abdominal Pain, Diarrhea, Constipation, Melena, Hematochezia, Other Genitourinary: No Dysuria, No Frequency, No Incontinence, No Hematuria, No Retention, No Other Musculoskeletal: neck pain; No: other, arm pain, back pain, hand pain, leg pain, foot pain Skin: No: Rash, Lesions, Jaundice, Bruising, Other Neurological: No: Weakness, Numbness, Incoordination, Change in speech, Confusion, Seizures, Other Allergies: Unknown allergies. Objective vital signs Vital Sign Date Time Temp Pulse Resp B/P (MAP) Pulse Ox O2 Delivery O2 Flow Rate FiO2 09/24/25 13:47 153/79 09/24/25 13:00 97.5 60 19 99 97.5 09/24/25 00:42 Room Air* 0 21 Total Intake and Output 09/23/25 09/23/25 09/24/25 15:00 23:00 07:00 Intake Total 500 ml 210 ml Balance 500 ml 210 ml medications Current Medications Medications Dose Ordered Sig/Niecy Route Start Time Stop Time Status Last Admin Dose Admin Acetaminophen/ Hydrocodone Bitart 1 tab Q4HP PRN PO 09/23/25 21:30 Ondansetron HCl 4 mg Q4HP PRN IV 09/23/25 21:30 Enoxaparin Sodium 40 mg DAILY@2200 SC 09/23/25 22:30 Acetaminophen 650 mg Q4HP PRN PO 09/23/25 21:30 Hydrochlorothiazide 50 mg DAILY PO 09/24/25 10:00 09/24/25 13:47 50 MG Loratadine 10 mg DAILY PO 09/24/25 10:00 09/24/25 13:47 10 MG Lidocaine 1 patch DAILY@2200 TOP 09/24/25 22:00 Atorvastatin Calcium 40 mg HS PO 09/24/25 03:30 Amlodipine Besylate 10 mg DAILY PO 09/24/25 11:45 09/24/25 13:46 10 MG Examination General Appearance: No acute Distress, Normal HEENT: Right ear: non tender, no active discharge. PERRL/EOMI, Pharynx Normal, TMs Normal Neck: ROM limited due to pain. Tender to deep palpation. Respiratory: Chest Non-Tender, Lungs Clear, No Accessory Muscle Use, No Respiratory Distress, Normal Breath Sounds Cardiovascular: No Edema, No JVD, No Murmur, No Gallop, Normal Peripheral Pulses, Regular Rate/Rhythm Gastrointestinal: No Organomegaly, Non Tender, No Pulsatile Mass, Normal Bowel Sounds, Soft Extremities: No calf tenderness, Normal capillary refill, Normal inspection, Normal range of motion, Non-tender, No pedal edema Musculoskeletal : Tenderness on passive and active ROM. Tenderness on palpation. Neurologic: Alert, student affairs vice president II-XII nml as Tested, No Motor Deficits, Normal Affect, Normal Mood, No Sensory Deficits Cerebellar Function: Normal Reflexes: Normal Skin: Dry, Normal Color, Warm Peripheral Pulses: 2+ carotid (R), 2+ carotid (L), 2+ dorsalis pedis (R), 2+ dorsalis pedis (L) Lymphatic: No Adenopathy laboratory and microbiology Laboratory Tests 09/24/25 08:34 Test 09/24/25 08:34 Range/Units Serum Glucose 93 74-106 mg/dL Problem List/Assessment/Plan Problem List/Assessment/Plan #Hypertensive Urgency #Hypertensive heart disease systolic/diastolic -CXR-No acute cardiopulmonary disease. -CT -head without contrast shows no acute intracranial abnormality -continue home medication hydrochlorothiazide 50 mg po daily -amlodipine 5 mg p.o. daily -UDS negative -echo: report is pending -pain control with acetaminophen 650 mg q.4 PRN for headache -[place] 5/325 mg q.4 PRN for neck pain #Bony spondylolysis and degenerative disc disease #Avulsion fracture of tip of spinous process C7 -CT cervical spine shows: Bony spondylosis and degenerative disc changes are noted from C3 through C6; There is a small calcification off the tip of the spinous process of C7. 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 Discussed plan of care with Dr. Reed. Code status: Full code PCP: Nons Plan discussed with: Patient, the patient agrees with the plan. Plan discussed with: Patient My Orders My Orders Orders - PATEL BERG Procedure Category Date Status Time Covid19 Antigen [place] LAB 09/24/25 Logged Complete Blood Count LAB 09/25/25 Verified 04:00 Basic Metabolic Panel LAB 09/25/25 Verified 04:00 Date of Service: Sep 24, 2025 Billing Provider: LORETO SANTOS MD Common Visit Codes: [id number] INP/OBS CARE(HIGH) PATEL BERG RESIDENT Sep 24, 2025 14:19 LORETO SANTOS MD Sep 24, 2025 22:33
[2025-09-24] MEDS: HYDROcodone-ACET 5/325MG TAB PO PRN (16:25)
--- NOTE | 2025-09-24 18:05 | DVHSR ---
APPROVED REPORT EXAM: Two-dimensional and M-mode echocardiogram with Doppler and color Doppler. Blood Pressure: 158/90 mmHg INDICATION Chest Pain RISK FACTORS Height: 5'2", Weight: 174 DIMENSIONS LVDd3.9 (3.8-5.7cm)LA (2D)3.4 (1.9-4.0cm)Aortic Root2.5 (2.0-3.7cm) LVDs2.5 (2.5-4.0cm)LA (MM) (1.9-4.0cm)Aortic Cusp Exc1.6 (1.5-2.0cm) EF (%) 66.0 (55-70%)Rt. Atrium3.3 (1.9-4.0cm)Asc. Aorta cm IVSd1.0 (0.7-1.1cm)RV (D)2.8 (1.8-2.4cm) PWd0.9 (0.7-1.1cm) Mitral Valve MitralMitral Stenosis E wave0.88m/sMV Mean GR.mmHg A wave0.81m/sMV Peak GR.mmHg E/A ratio1.12D MVAcm2 DECEL [id number] 1/2 Timems Aortic Valve Aortic ValveAortic Stenosis V11.15m/Brigette Mean GR.4mmHg V21.38m/Brigette Peak GR.8mmHg LVOT Diameter1.9 (1.8-2.4cm)Doppler AVA2.36cm2 Pulmonic Valve V20.69m/s Other Information Quality : Technically LimitedRhythm : Technically limited study due to body habitus. Conclusion lvef 60% mild LVH normal rv function left atrium enlarged no severe valve abnormalities noted
[2025-09-24] MEDS ORDERED: hydrALAZINE HCL 20 MG/ML VL IV ONE (18:15)
[2025-09-24] MEDS: LIDOCAINE 5% TOPICAL PATCH TOP SCH (21:15)
[2025-09-25 00:47] VITALS: BP 129/74; PULSE 59; RESP 17; TEMP 98.1; O2SAT 98
[2025-09-25 04:45] VITALS: BP 131/80; PULSE 61; RESP 19; TEMP 97.9; O2SAT 100
[2025-09-25 05:47] LABS: Hematocrit 40.7 % (36.0-46.0); Hemoglobin 13.8 g/dL (12.2-16.2); Mean Corpuscular Hemoglobin 29.4 pg (28.0-32.0); Mean Corpuscular Volume 87.0 fL (80.0-100.0); Nucleated Red Blood Cells % 0.1 %
[2025-09-25 06:01] LABS: Anion Gap 10 (5-15); Carbon Dioxide 30 mmol/L (20-31); Chloride 104 mmol/L (98-107); Potassium 3.6 mmol/L (3.5-5.1); Sodium 144 mmol/L (136-145)
[2025-09-25 06:03] LABS: Calcium 9.5 mg/dL (8.7-10.4)
[2025-09-25 06:08] LABS: BUN/Creatinine Ratio 14.6 (10.0-20.0); Blood Urea Nitrogen 15 mg/dL (9-23); Glucose 86 mg/dL (74-106)
[2025-09-25 09:00] VITALS: BP 153/92; PULSE 60; RESP 19; TEMP 97.8; O2SAT 99
[2025-09-25] MEDS: CHLORTHALIDONE 25 MG TAB PO ONE (10:00)
[2025-09-25 11:35] LABS: COVID19 ANTIGEN SOFIA FIA NEGATIVE (NEGATIVE)
[2025-09-25 13:00] VITALS: BP 155/85; PULSE 64; RESP 19; TEMP 98.1; O2SAT 96
[2025-09-25] MEDS ORDERED: LIDO2SOL26 MT (13:28)
[2025-09-25] MEDS ORDERED: CHLO25TA2 PO (13:28)
[2025-09-25] MEDS ORDERED: AZITTAB PO (13:28)
[2025-09-25] MEDS ORDERED: NYS5LQ MT (13:28)
[2025-09-25] MEDS ORDERED: HYDR25TA87 PO (13:28)
[2025-09-25] MEDS ORDERED: AMLO1TAB23 PO (13:28)
[2025-09-25 14:19] VITALS: PULSE 67
--- NOTE | 2025-09-25 14:33 | DVHDSRES ---
Discharge Summary Date of Admission Resident Creating Document: PATEL BERG RESIDENT Sep 23, 2025 at 21:25 Date of Discharge: Sep 25, 2025 Admitting Diagnosis Hypertensive urgency Labs/Diagnostic Data: Laboratory Results Test 09/25/25 11:04 09/25/25 05:05 09/24/25 08:34 09/23/25 14:52 Influenza Type A Antigen Negative (Negative) Influenza Type B Antigen Negative (Negative) SARS-CoV-2 Antigen (Rapid) Negative (NEGATIVE) White Blood Count 4.3 10^3/uL (4.4-10.8) Red Blood Count 4.68 10^6/uL (4.0-5.20) Hemoglobin 13.8 g/dL (12.2-16.2) Hematocrit 40.7 % (36.0-46.0) Mean Corpuscular Volume 87.0 fL (80.0-100.0) Mean Corpuscular Hemoglobin 29.4 pg (28.0-32.0) Mean Corpuscular Hemoglobin Concent 33.9 g/dL (32.0-36.0) Red Cell Distribution Width 13.7 % (11.8-14.3) Platelet Count 312 10^3/uL (140-450) Mean Platelet Volume 7.4 fL (6.9-10.8) Neutrophils (%) (Auto) 42.1 % (37.0-80.0) Lymphocytes (%) (Auto) 38.8 % (10.0-50.0) Monocytes (%) (Auto) 10.4 % (0.0-12.0) Eosinophils (%) (Auto) 8.2 % (0.0-7.0) Basophils (%) (Auto) 0.5 % (0.0-2.0) Neutrophils # (Auto) 1.8 10 ^3/uL (1.6-8.6) Lymphocytes # (Auto) 1.7 10 ^3/uL (0.4-5.4) Monocytes # (Auto) 0.4 10 ^3/uL (0-1.3) Eosinophils # (Auto) 0.4 10 ^3/uL (0-0.8) Basophils # (Auto) 0 10 ^3/uL (0-0.2) Nucleated Red Blood Cells 0.1 % Sodium Level 144 mmol/L (136-145) Potassium Level 3.6 mmol/L (3.5-5.1) Chloride Level 104 mmol/L (98-107) Carbon Dioxide Level 30 mmol/L (20-31) Anion Gap 10 (5-15) Blood Urea Nitrogen 15 mg/dL (9-23) Creatinine 1.03 mg/dL (0.550-1.02) Glomerular Filtration Rate Calc 58 mL/min (>90) BUN/Creatinine Ratio 14.6 (10.0-20.0) Serum Glucose 86 mg/dL (74-106) Calcium Level 9.5 mg/dL (8.7-10.4) Total Bilirubin 0.7 mg/dL (0.2-1.0) Aspartate Amino Transferase (AST) 25 U/L (13-40) Alanine Aminotransferase (ALT) 25 U/L (7-40) Alkaline Phosphatase 116 U/L (46-116) Total Protein 7.3 g/dL (5.7-8.2) Albumin 4.2 g/dL (3.2-4.8) Triglycerides Level 90 mg/dL (< 150) Cholesterol Level 248 mg/dL (< 200) LDL Cholesterol 192 mg/dL (< 100) HDL Cholesterol 50 mg/dL (40-59) Direct Bilirubin 0.2 mg/dL (<0.3) Troponin I High Sensitivity 26 ng/L (</=34) Thyroid Stimulating Hormone (TSH) 3.01 uIU/mL (0.55-4.78) Test 09/23/25 14:26 09/23/25 14:25 Urine Color Colorless (Yellow) Urine Clarity Clear (Clear) Urine pH 7.0 (5.0-9.0) Urine Specific [place] 1.006 (1.001-1.035) Urine Protein Negative (Negative) Urine Ketones Negative (Negative) Urine Blood Negative /uL (Negative) Urine Nitrite Negative (Negative) Urine Bilirubin Negative (Negative) Urine Urobilinogen Normal mg/dL (Negative) Urine Leukocyte Esterase Negative /uL (Negative) Urine RBC None seen /hpf (0 - 4) Urine Microscopic WBC < 1 /HPF (0-5) Urine Squamous Epithelial Cells Few /hpf (<5) Urine Bacteria None seen /hpf (None Seen) Urine Glucose Normal mg/dL (Normal) Urine Opiates Screen Neg (NEGATIVE) Urine Fentanyl Screen Neg (NEGATIVE) Urine Barbiturates Screen Neg (NEGATIVE) Urine Phencyclidine Screen Neg (NEGATIVE) Urine Amphetamines Screen Neg (NEGATIVE) Urine Benzodiazepines Screen Neg (NEGATIVE) Urine Cocaine Screen Neg (NEGATIVE) Urine Cannabinoids Screen Neg (NEGATIVE) Other Laboratory Tests 09/25/25 05:05 Brief Hx & Hospital Course: Mohsen Romero is a 70-year-old female, with a past medical history of hypertension and single functioning kidney (diagnosed in adulthood, right kidney is present) who came to the ED with chief complaint of 1 day of headache, localized in the right temporal area, 9/10, throbbing like pain, irradiated to right side of the face, ear and neck; associated with dizziness, sore throat, and post nasal drip. The patient reported noticing high blood pressure readings at home. BP on admission was 217/112 mmHg; the patient was given clonidine 0.2mg. Hydrochlorothiazide 50mg and amlodipine 10mg was started. Her blood pressure was brought under control. CT scan report showed: Degenerative disc disease C3 through C6. COVID and influenza tests were negative. Patient also complained of coughing up yellow sputum. All medications and recommendations were thoroughly explained to the patient and she demonstrated complete understanding of the same. The patient was discharged home in a stable condition on Zpack for 5 days. 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 PERRL/EOMI, erythematous pharynx, small vesicle in posterior 1/3 of tongue, TMs Normal Neck: ROM limited due to pain. Tender to deep palpation. Respiratory: Chest Non-Tender, Lungs Clear, No Accessory Muscle Use, No Respiratory Distress, Normal Breath Sounds Cardiovascular: No Edema, No JVD, No Murmur, No Gallop, Normal Peripheral Pulses, Regular Rate/Rhythm Gastrointestinal: No Organomegaly, Non Tender, No Pulsatile Mass, Normal Bowel Sounds, Soft Extremities: No calf tenderness, Normal capillary refill, Normal inspection, Normal range of motion, Non-tender, No pedal edema Musculoskeletal : Tenderness on passive and active ROM. Tenderness on palpation. Neurologic: Alert, massotherapist II-XII nml as Tested, No Motor Deficits, Normal Affect, Normal Mood, No Sensory Deficits Cerebellar Function: Normal Reflexes: Normal Skin: Dry, Normal Color, Warm Peripheral Pulses: 2+ carotid (R), 2+ carotid (L), 2+ dorsalis pedis (R), 2+ dorsalis pedis (L) Lymphatic: No Adenopathy Operations or Procedures 1.PROCEDURE(s): CERV2 - CERVICAL SPINE 3V REASON: NECK PAIN TO SHOULDER ORDER NUMBER(s): [id number], ACCESSION NUMBER(s): [id number] CLINICAL INDICATION: NECK PAIN TO SHOULDER TECHNIQUE: 3 radiographic views of the cervical spine were obtained. Comparison: None FINDINGS/IMPRESSION: Bony spondylosis and degenerative disc changes are noted from C3 through C6. There is a small calcification off the tip of the spinous process of C7. May represent avulsion fracture off of the tip of the spinous process of C7 or may represent a calcification in the nuchal ligament. This is an avulsion fracture off the spinous process of C7 this is considered a michele-[employer]'s fracture and is stable. Calcification in the nuchal ligament there is no indication of affecting cervical stability. There is no prevertebral soft tissue swelling 2.PROCEDURE(s): CXR1 - CHEST XRAY 1 VIEW REASON: HTN ORDER NUMBER(s): [id number], ACCESSION NUMBER(s): [id number] CHEST RADIOGRAPH Indication: HTN Technique: Single frontal view of the chest was obtained Comparison: None FINDINGS: Lines and Tubes: None Lungs: No focal consolidation. Pleura: No effusion. No pneumothorax. Cardiomediastinal contours: Unremarkable Bones: No acute osseous abnormality. IMPRESSION: No acute cardiopulmonary disease. 3.PROCEDURE(s): HWOCT - HEAD WITHOUT CONTRAST REASON: HEADACHE WITH ELEVATED BLOOD PRESSURE ORDER NUMBER(s): [id number], ACCESSION NUMBER(s): [id number] CLINICAL HISTORY: HEADACHE WITH ELEVATED BLOOD PRESSURE TECHNIQUE: Helical scanning was performed of the head from the skull base to the vertex. Multiplanar reconstructions were performed. This exam was performed according to our departmental dose optimization program. Up-to-date CT equipment and radiation dose reduction techniques are utilized as appropriate. CTDI 54 DLP 968 COMPARISON: None FINDINGS: There is no evidence for acute intracranial hemorrhage, acute ischemic changes, mass, mass effect, or extra-axial fluid collection. There is no hydrocephalus or midline shift. There is no effacement of the cerebral sulci and basal subarachnoid cisterns. The henning-white matter differentiation is well maintained. The imaged paranasal sinuses are clear. IMPRESSION: NO ACUTE INTRACRANIAL ABNORMALITY SEEN. 4.PROCEDURE(s): ECIDC - ECHO 2D MODE CARDIAC DOP REASON: chest pain ORDER NUMBER(s): [id number], ACCESSION NUMBER(s): [id number] APPROVED REPORT EXAM: Two-dimensional and M-mode echocardiogram with Doppler and color Doppler. Blood Pressure: 158/90 mmHg INDICATION Chest Pain RISK FACTORS Height: 5'2", Weight: 174 DIMENSIONS LVDd 3.9 (3.8-5.7cm) LA (2D) 3.4 (1.9-4.0cm) Aortic Root 2.5 (2.0- 3.7cm) LVDs 2.5 (2.5-4.0cm) LA (MM) (1.9-4.0cm) Aortic Cusp Exc 1.6 (1.5- 2.0cm) EF (%) 66.0 (55-70%) Rt. Atrium 3.3 (1.9-4.0cm) Asc. Aorta cm IVSd 1.0 (0.7-1.1cm) RV (D) 2.8 (1.8-2.4cm) PWd 0.9 (0.7-1.1cm) Mitral Valve Mitral Mitral Stenosis E wave 0.88m/s MV Mean GR. mmHg A wave 0.81m/s MV Peak GR. mmHg E/A ratio 1.1 2D MVA cm2 DECEL Time 173ms PRESS 1/2 Time ms Aortic Valve Aortic Valve Aortic Stenosis V1 1.15m/s AO Mean GR. 4mmHg V2 1.38m/s AO Peak GR. 8mmHg LVOT Diameter 1.9 (1.8-2.4cm) Doppler ROLANDO 2.36cm2 Pulmonic Valve V2 0.69m/s Other Information Quality : Technically Limited Rhythm : Technically limited study due to body habitus. 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 Avulsion fracture of tip of spinous process C7 Dyslipidemia Discharge Disposition: Home Discharge Instruct/Medications Diet: Cardiac 2g Na,low cholest Activity: No Restrictions, As Tolerated Follow Up/Referral: follow up with PCP in 1-2 weeks Medications: zpack 250 mg po dialy for 5 days nystatin (mouth throat) 5ml qid 10 days viscous lidocaine (mouth throat) bid 10 days amlodipine 10mg po daily hydralazine 25mg po tid chlothalidone 25mg po daily Scheduled Amlodipine Besylate (Amlodipine Besylate), 1 TAB PO DAILY Azithromycin (Zithromax Z-Shreyas), 250 MG PO DAILY Chlorthalidone (Chlorthalidone), 25 MG PO DAILY Hydralazine HCl (Hydralazine HCl), 25 MG PO TID Lidocaine HCl (Mouth-Throat) (Lidocaine HCl Viscous), 2 % MT BID Nystatin (Mouth-Throat) (Mycostatin (Mouth-Throat)), 5 ML MT QID Discharge Statement: "Patient was advised to return to the ER or call 911 if any headaches, dizziness, shortness of breath, chest pain, abdominal pain, bleeding, fevers, or worsening of medical condition. Patient was counseled about treatment plan, medications, possible side effects, patientverbalized understanding. All questions were answered to the best of my ability. This discharge took greater then 30 minutes in planning, reviewing documentation, counseling the patient, and discussing with other team members." ASSESSMENT ASSESSMENT Assessment hypertensive urgency acute bronchitis,likely bacterial Date of Service: Sep 25, 2025 Billing Provider: LORETO SANTOS MD Common Visit Codes: 23331-AOH/OBS DISCH DAY >30min Date of Service: Sep 25, 2025 Billing Provider: LORETO SANTOS MD Common Visit Codes: 99508-XMR/OBS DISCH DAY >30min NASREEN WALSH RESIDENT Sep 25, 2025 14:33 LORETO SANTOS MD Sep 25, 2025 22:49
[2025-09-26] MEDS ORDERED: CHLORTHALIDONE 25 MG TAB PO SCH (08:00)
== END 2025-09-25 16:10 | disposition home or self-care (01) | DRG 552 ==
LOC: ER 14:07 → OVERFLOW 21:25 → TELE-EAST 09-24 01:35
PROVIDERS: ADMIT Internal Medicine; ATTEND Internal Medicine
DX: S12.690A Other displaced fracture of seventh cervical vertebra, initial encounter for closed fracture (principal); I16.0 Hypertensive urgency; I11.9 Hypertensive heart disease without heart failure; M43.02 Spondylolysis, cervical region; E78.5 Hyperlipidemia, unspecified; M50.31 Other cervical disc degeneration, high cervical region; M50.322 Other cervical disc degeneration at C5-C6 level; Z20.822 Contact with and (suspected) exposure to COVID-19; X58.XXXA Exposure to other specified factors, initial encounter; J20.8 Acute bronchitis due to other specified organisms; Z86.73 Personal history of transient ischemic attack (TIA), and cerebral infarction without residual deficits; Y93.89 Activity, other specified; Y92.89 Other specified places as the place of occurrence of the external cause; Y99.8 Other external cause status
CPT/HCPCS: 36415; 70450; 71045; 72040; 80048; 80053; 80061; 80076; 80307; 81001; 84443; 84484; 85025; 87426; 87804; 93306; 96360; G0378